=== PATIENT | male | born 1995 | race American Indian/Alaskan Native ===

== ENCOUNTER 2017-11-10 13:35 | Emergency (ER) | payer SELFPAY ==
[2017-11-10 13:42] VITALS: RESP 16; TEMP 97.9; BMI 20.7
--- NOTE | 2017-11-10 14:11 | C.PDOC ---
History Of Present Illness 21 year old male presents to the ED for exacerbation of chronic right lower tooth pain x 3 days. Patient states he has been having intermittent pain to the same tooth for many years after it cracked "a while ago." Patient denies swelling or other associated symptoms. Patient denies prior dental evaluation of the same. EXAC CHRONIC R LOWER TOOTH PAIN X 3 DAYS. PS INTERMIT PAIN TO SAME TOOTH FOR MANY YEARS, CRACKED "AWHILE AGO". NO NEW TRAUMA. NO SWELLING, OTHER ASSOC SX. NO PRIOR DENTAL EVAL FOR SAME EXAM NAD HEENT +CRACKED TOOTH R LOWER 1 MOLAR NO ABSCESS. +LOCAL TEND. NO FACIAL SWELL. REMAINDER NEG [facility] REVIEWED NO PRIOR RECORDS ADVISED NEED FOR DENTIST. ABX, PAIN RX Time Seen by Provider: 11/10/17 13:57 Chief Complaint (Nursing): Dental Pain History Per: Patient History/Exam Limitations: no limitations Onset/Duration Of Symptoms: Days (3) Current Symptoms Are (Timing): Still Present Quality: Positive for: "Pain" Additional History Per: Patient Past Medical History Reviewed: Historical Data, Nursing Documentation, Vital Signs Vital Signs: Last Vital Signs Temp 97.9 F 11/10/17 13:42 Pulse 68 11/10/17 14:37 Resp 16 11/10/17 14:37 BP 110/69 11/10/17 14:37 Pulse Ox 100 11/10/17 15:48 - Medical History PMH: No Chronic Diseases Surgical History: No Surg Hx Family History: States: Unknown Family Hx - Social History Hx Alcohol Use: Yes Hx Substance Use: No - Immunization History Hx Tetanus Toxoid Vaccination: No Hx Influenza Vaccination: No Hx Pneumococcal Vaccination: No Review Of Systems ENT: Positive for: Mouth Pain (right lower tooth pain ) Physical Exam - Physical Exam Appears: Non-toxic, No Acute Distress Skin: Normal Color, Warm, Dry Head: Atraumatic, Normacephalic, No Swelling (facial ) Eye(s): bilateral: Normal Inspection Ear(s): Bilateral: Normal Nose: Normal, No Discharge Oral Mucosa: Moist Teeth: Tender To Palpation (localized to right lower 1st molar ), Other ( cracked tooth to right lower 1st molar) Gingiva: No Abscess Neck: Supple Neurological/Psych: Oriented x3, Normal Speech, Normal Cognition Gait: Steady ED Course And Treatment O2 Sat by Pulse Oximetry: 100 (on RA) Pulse Ox Interpretation: Normal Medical Decision Making Medical Decision Making: [facility] REVIEWED NO PRIOR RECORDS ADVISED NEED FOR DENTIST. ABX, PAIN RX Disposition Counseled Patient/Family Regarding: Diagnosis, Need For Followup, Rx Given - Disposition Referrals: YOUR,DENTIST [Other] Disposition: HOME/ ROUTINE Disposition Time: 14:30 Condition: GOOD Prescriptions: Acetaminophen/Codeine [Tylenol/Codeine 300 MG/30 MG] 2 tab PO Q6H #10 tab Ibuprofen [Motrin] 600 mg PO Q6 #30 tab Penicillin VK [Penicillin VK Tab] 250 mg PO Q6H #28 tab Instructions: Toothache (ED) Forms: [facility] (Bulgarian), Work Excuse - Clinical Impression Clinical Impression: Dentalgia - Scribe Statement The provider has reviewed the documentation as recorded by the Scribe (Jessica Martin) Provider Attestation: All medical record entries made by the Scribe were at my direction and personally dictated by me. I have reviewed the chart and agree that the record accurately reflects my personal performance of the history, physical exam, medical decision making, and the department course for this patient. I have also personally directed, reviewed, and agree with the discharge instructions and disposition.
[2017-11-10 14:38] VITALS: BP 110/69; PULSE 68
[2017-11-10 15:47] VITALS: O2SAT 100
== END 2017-11-10 14:37 | disposition home or self-care (01) ==
LOC: C.ER 13:35
DX: K08.89 Other specified disorders of teeth and supporting structures (principal)

== ENCOUNTER 2018-03-09 09:55 | Emergency (ER) | payer MEDICAID ==
[2018-03-09 09:55] VITALS: BMI 20.7
[2018-03-09 10:12] VITALS: O2SAT 100
[2018-03-09] MEDS ORDERED: Sodium Chloride 0.9% 1,000 ML IV ONE (10:37)
[2018-03-09] MEDS ORDERED: Sodium Chloride 0.9% 1,000 ML ONE (10:45)
[2018-03-09 10:56] LABS: BASO % 0.4 % (0.0-2.0); EOS % 0.7 % (0.0-4.0); HEMOGLOBIN 14.7 g/dL (12.0-18.0); LYMPH # 0.9 K/uL (1.0-4.3); LYMPH % 13.8 % (20.0-40.0); MEAN CELL VOLUME 94.1 fL (80.0-94.0); MEAN CORPUSCULAR HEMOGLOBIN 31.8 pg (27.0-31.0); MEAN CORPUSCULAR HGB CONC 33.8 g/dL (33.0-37.0); MEAN PLATELET VOLUME 8.3 fL (7.2-11.7); MONO # 1.1 K/uL (0.0-0.8); MONO % 16.8 % (0.0-10.0); NEUT # 4.5 K/uL (1.8-7.0); NEUT % 68.3 % (50.0-75.0); RBC 4.62 Mil/uL (4.40-5.90); RED CELL DISTRIBUTION WIDTH 13.3 % (11.5-14.5); WHITE BLOOD COUNT 6.6 K/uL (4.8-10.8)
[2018-03-09 11:11] LABS: ALB/GLOB RATIO 1.2 (1.0-2.1); ALBUMIN 4.5 g/dL (3.5-5.0); ALT/SGPT 14 U/L (21-72); AST/SGOT 21 U/L (17-59); BLOOD UREA NITROGEN 11 mg/dL (9-20); CALCIUM 9.8 mg/dl (8.6-10.4); GFR AFRICAN-AMERICAN > 60; GFR NON-AFRICAN AMERICAN > 60; LIPASE 51 U/L (23-300)
[2018-03-09 12:22] LABS: SQUAMOUS EPITHIAL 1 /hpf (0-5); URINE BILIRUBIN NEGATIVE (NEGATIVE); URINE BLOOD NEGATIVE (NEGATIVE); URINE CLARITY Clear (Clear); URINE COLOR Yellow (YELLOW); URINE GLUCOSE (UA) NORMAL (Normal); URINE LEUKOCYTE ESTERASE NEG Leu/uL (Negative); URINE PROTEIN NEGATIVE (NEGATIVE); URINE UROBILINOGEN NORMAL mg/dL (0.2-1.0)
--- NOTE | 2018-03-09 12:25 | C.PDOC ---
History Of Present Illness 22-year-old male, presents to the emergency department with complaints of two- day duration of nausea, and multiple episodes of non-bloody/watery diarrhea. Patient also had associated fever today, prompting visit. Denies and shortness of breath, chest pain, back pain, or any other associated symptoms. No other complaints at this time. Time Seen by Provider: 03/09/18 10:17 Chief Complaint (Nursing): Abdominal Pain History Per: Patient History/Exam Limitations: no limitations Onset/Duration Of Symptoms: Days (2 days) Current Symptoms Are (Timing): Still Present Severity: Mild Location Of Pain/Discomfort: Diffuse Radiation Of Pain To:: None Associated Symptoms: denies: Fever Past Medical History Reviewed: Historical Data, Nursing Documentation, Vital Signs Vital Signs: Last Vital Signs Temp 98 F 03/09/18 13:19 Pulse 67 03/09/18 13:19 Resp 20 03/09/18 13:19 BP 113/70 03/09/18 13:19 Pulse Ox 100 03/09/18 13:19 - Medical History PMH: No Chronic Diseases Surgical History: No Surg Hx Family History: States: No Known Family Hx - Social History Hx Alcohol Use: Yes Hx Substance Use: No - Immunization History Hx Tetanus Toxoid Vaccination: No Hx Influenza Vaccination: No Hx Pneumococcal Vaccination: No Review Of Systems Constitutional: Positive for: Fever Cardiovascular: Negative for: Chest Pain, Palpitations Respiratory: Negative for: Shortness of Breath Gastrointestinal: Positive for: Nausea, Vomiting, Diarrhea. Negative for: Abdominal Pain Musculoskeletal: Negative for: Back Pain Skin: Negative for: Rash Neurological: Negative for: Weakness, Numbness, Headache, Dizziness Physical Exam - Physical Exam Appears: Non-toxic, No Acute Distress Skin: Normal Color, Warm, Dry, No Rash Head: Normacephalic Eye(s): bilateral: PERRL Nose: Normal Oral Mucosa: Moist Lips: Normal Appearing Neck: Normal ROM Chest: Symmetrical Cardiovascular: Rhythm Regular, No Murmur Respiratory: Normal Breath Sounds, No Accessory Muscle Use Gastrointestinal/Abdominal: Soft, No Tenderness, No Guarding, No Rebound Extremity: Normal ROM, No Deformity, No Swelling Neurological/Psych: Oriented x3, Normal Speech ED Course And Treatment - Laboratory Results Result Diagrams: 03/09/18 10:46 03/09/18 10:46 Lab Interpretation: Normal O2 Sat by Pulse Oximetry: 100 (RA) Pulse Ox Interpretation: Normal Progress Note: Treated with IVF NSS and zofran and bentyl 20 mg IV. On re- evaluation lungs clear, abdomen soft mom-tender Disposition Counseled Patient/Family Regarding: Studies Performed, Diagnosis, Need For Followup, Rx Given - Disposition Referrals: [facility] [Outside] [facility] [Outside] Disposition: HOME/ ROUTINE Disposition Time: 13:00 Condition: STABLE Additional Instructions: Follow up with your PMD for further evaluation Prescriptions: Ondansetron ODT [Zofran ODT] 1 odt PO BID PRN #6 odt PRN Reason: Nausea/Vomiting Instructions: Viral Gastroenteritis Forms: [facility] (Serbian) - POA Present On Arrival: None - Clinical Impression Clinical Impression: Abdominal pain, Gastroenteritis - Scribe Statement The provider has reviewed the documentation as recorded by the Scribe (Liss Kendrick) All medical record entries made by the Scribe were at my direction and personally dictated by me. I have reviewed the chart and agree that the record accurately reflects my personal performance of the history, physical exam, medical decision making, and the department course for this patient. I have also personally directed, reviewed, and agree with the discharge instructions and disposition.
[2018-03-09 13:19] VITALS: BP 113/70; PULSE 67; RESP 20; TEMP 98
== END 2018-03-09 13:19 | disposition home or self-care (01) ==
LOC: C.ER 09:55
DX: K52.9 Noninfective gastroenteritis and colitis, unspecified (principal); R10.9 Unspecified abdominal pain
CPT/HCPCS: 80053; 81001; 83690; 85025; 96361; 96372; 96374; 99285; J0500; J2405; J7040

== ENCOUNTER 2018-08-15 15:17 | Emergency (ER) | payer MEDICAID, OTHER ==
[2018-08-15 15:17] VITALS: BMI 20.7
[2018-08-15 15:29] VITALS: BP 131/76; PULSE 66; RESP 19; TEMP 99.2; O2SAT 100
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
== END 2018-08-15 16:06 | disposition home or self-care (01) ==
LOC: C.ER 15:17
DX: S39.012A Strain of muscle, fascia and tendon of lower back, initial encounter (principal); V49.59XA Passenger injured in collision with other motor vehicles in traffic accident, initial encounter; Y92.414 Local residential or business street as the place of occurrence of the external cause